=== PATIENT | male | born 1980 | race Caucasian/White ===

== ENCOUNTER 2017-01-01 15:00 | Emergency (ER) | payer SELFPAY | END 2017-01-01 18:47 | disposition home or self-care (01) | LOC: ER1 15:00 | DX: S39.012A Strain of muscle, fascia and tendon of lower back, initial encounter (principal); R31.9 Hematuria, unspecified; F17.200 Nicotine dependence, unspecified, uncomplicated; X58.XXXA Exposure to other specified factors, initial encounter | CPT/HCPCS: 72100; 81001; 99283 ==